=== PATIENT | female | born 1955 | race Two or more races ===

== ENCOUNTER 2024-04-23 09:06 | Inpatient (IN) | payer SELFPAY ==
[~2024-04-23] VITALS: Ht 152.4 cm; Wt 57.3 kg
[2024-04-23 10:01] LABS: Basophils # (auto) 0.1 10 ^3/uL (0-0.2); Basophils % (auto) 0.9 % (0.0-2.0); Eosinophils # (auto) 0.3 10 ^3/uL (0-0.8); Eosinophils % (auto) 4.5 % (0.0-7.0); Hematocrit 43.8 % (36.0-46.0); Hemoglobin 14.7 g/dL (12.2-16.2); Lymphocytes # (auto) 1.5 10 ^3/uL (0.4-5.4); Lymphocytes % (auto) 26.9 % (10.0-50.0); Mean Corpuscular Hemoglobin 30.8 pg (28.0-32.0); Mean Corpuscular Hgb Conc. 33.6 g/dL (32.0-36.0); Mean Corpuscular Volume 91.8 fL (80.0-100.0); Monocytes # (auto) 0.3 10 ^3/uL (0-1.3); Monocytes % (auto) 5.3 % (0.0-12.0); Neutrophils # (auto) 3.6 10 ^3/uL (1.6-8.6); Neutrophils % (auto) 62.4 % (37.0-80.0); Nucleated Red Blood Cells % 0.1 %; Red Blood Cells 4.78 10^6/uL (4.0-5.20); Red Cell Distribution Width 12.8 % (11.8-14.3); White Blood Cell 5.7 10^3/uL (4.4-10.8)
[2024-04-23 10:21] LABS: Alanine Aminotransferase 14 U/L (7-40); Albumin 4.7 g/dL (3.2-4.8); Alkaline Phosphatase 74 U/L (46-116); Anion Gap 6 (5-15); Aspartate Aminotransferase 15 U/L (13-40); BUN/Creatinine Ratio 13.3 (10.0-20.0); Blood Urea Nitrogen 10 mg/dL (9-23); Calcium 9.5 mg/dL (8.5-10.1); Carbon Dioxide 27 mmol/L (20-30); Chloride 107 mmol/L (98-107); Glucose 142 mg/dL (74-106); Potassium 3.8 mmol/L (3.5-5.1); Sodium 140 mmol/L (136-145)
[2024-04-23 10:22] LABS: Bilirubin, Total 0.7 mg/dL (0.2-1.0); Total Protein 7.8 g/dL (5.7-8.2)
[2024-04-23 10:34] LABS: INR 0.97 (0.9-1.15); Partial Thromboplastin Time 25.1 SEC (24.5-34.5); Prothrombin Time 10.3 sec (9.3-11.8)
[2024-04-23] MEDS: IOHEXOL 300 MG/ML 100ML BOTTLE IJ ONE (10:58)
[2024-04-23 11:33] LABS: Urine Bacteria None Seen /hpf (None Seen)
[2024-04-23 11:52] LABS: Urine Blood Negative /uL (Negative); Urine Clarity Clear (Clear); Urine Color Colorless (Yellow); Urine Mucus FEW (None Seen); Urine Protein, UAD Negative (Negative); Urine Specific Gravity 1.007 (1.001-1.035); Urine Urobilinogen Normal (Negative); Urine WBC 1 /hpf (0 - 5)
[2024-04-23] MEDS ORDERED: traMADol HCL 50 MG TAB PO PRN (12:30)
[2024-04-23] MEDS ORDERED: ONDANSETRON HCL 4 MG/2 ML VIAL IV PRN (12:30)
[2024-04-23] MEDS ORDERED: ACETAMINOPHEN 500 MG TAB PO PRN (12:30)
[2024-04-23] MEDS ORDERED: CARV6.2551 PO (17:27)
[2024-04-23 17:30] VITALS: BP 169/69; PULSE 64; RESP 16; TEMP 98.7; O2SAT 97
[2024-04-23 18:08] VITALS: PULSE 64; RESP 16; O2SAT 97
[2024-04-23] MEDS ORDERED: hydrALAZINE HCL 20 MG/ML VL IV PRN (18:30)
[2024-04-23] MEDS ORDERED: LABETALOL HCL 5 MG/ML 4ML SYRINGE IV PRN (18:30)
[2024-04-23 20:00] VITALS: PULSE 64; RESP 16; O2SAT 95
[2024-04-23 21:00] VITALS: BP 148/65; PULSE 64; RESP 17; TEMP 98.5; O2SAT 93
[2024-04-23] MEDS: CARVEDILOL 3.125 MG TAB PO SCH (21:44)
[2024-04-24] VITALS (9 sets, daily range): BP systolic 127–153; BP diastolic 62–76; PULSE 54–78; RESP 17–18; TEMP 97.5–99; O2SAT 92–98
[2024-04-25 05:00] VITALS: BP 165/67; PULSE 57; RESP 18; TEMP 98.3; O2SAT 94
[2024-04-25 06:02] VITALS: BP 137/71; PULSE 64
[2024-04-25 08:00] VITALS: PULSE 61; RESP 18; O2SAT 97
[2024-04-25 09:00] VITALS: BP 156/84; PULSE 66; RESP 17; TEMP 98.2; O2SAT 98
[2024-04-25] MEDS ORDERED: IOHEXOL 300 MG/ML 100ML BOTTLE IJ ONE (10:11)
[2024-04-25 13:08] VITALS: BP 133/67; PULSE 61; RESP 18; TEMP 97.4; O2SAT 97
[2024-04-25 15:24] VITALS: BP 133/67; PULSE 61; RESP 18; TEMP 97.4; O2SAT 97
== END 2024-04-25 16:00 | disposition home or self-care (01) | DRG 601 ==
LOC: ER 09:06 → OVERFLOW 12:28 → CENTRAL 16:45
PROVIDERS: ADMIT Internal Medicine; ATTEND Internal Medicine
PROC: 0HBT3ZX Excision of Right Breast, Percutaneous Approach, Diagnostic (ICD-10-PCS; principal; 2024-04-23)
DX: N63.31 Unspecified lump in axillary tail of the right breast (principal); I10 Essential (primary) hypertension; Z79.899 Other long term (current) drug therapy
CPT/HCPCS: 36415; 71260; 74177; 76642; 76830; 76856; 76881; 76942; 80053; 81001; 85025; 85610; 85730; G0378